=== PATIENT | male | born 1945 ===

== ENCOUNTER 2017-04-30 07:23 | Day surgery (SDC) | payer MEDICARE, MEDICAID ==
[2017-04-30 08:05] VITALS: BMI 23.3
[2017-04-30] MEDS ORDERED: Propofol 10 mg/ml Inj (20 ML) ONE (08:57)
[2017-04-30] MEDS ORDERED: Lidocaine Hydrochloride 5 ML INJ ONE (08:57)
--- NOTE | 2017-04-30 08:59 | CP.SDSHP ---
Same Day Surgery H & P - History Proposed Procedure: Colonoscopy Pre-Op Diagnosis: Personal history of colon polyps - Previous Medical/Surgical History Neuro: Other Comments: Parkinson's Disease Previous Surgical History: Hemorrhoidectomy - Allergies Allergies: Allergies No Known Allergies Allergy (Verified 04/30/17 08:05) - Current Medications Current Medications: See reconciliation sheet - Physical Exam General Appearance: WD WN male in NAD Vital Signs: Vital Signs 04/30/17 07:53 Temperature 98.1 F Pulse Rate 62 Respiratory 19 Rate Blood Pressure 122/90 O2 Sat by Pulse 98 Oximetry Mental Status: Alert & Oriented x3 Neuro: WNL Heart: WNL Lungs: WNL GI: WNL - {Optional Preform as Required} Abdomen: WNL - Impression Impression: Personal history of colon polyps Pt. Evaluated Today:Candidate for Anesthesia & Procedure: Yes - Date & Time Date: 04/30/17 Time: 08:59 Short Stay Discharge - Short Stay Discharge Admitting Diagnosis/Reason for Visit: PERSONAL HISTORY OF COLON POLYPS Disposition: HOME/ ROUTINE
[2017-04-30] MEDS ORDERED: ePHEDrine 50 mg/ml Inj ONE (09:00)
[2017-04-30] MEDS ORDERED: Phenylephrine 10 mg/ml Inj ONE (09:00)
[2017-04-30 10:06] VITALS: TEMP 97.7
[2017-04-30 11:15] VITALS: BP 130/68; PULSE 66; RESP 20; O2SAT 99
== END 2017-04-30 10:55 | disposition home or self-care (01) ==
LOC: C.ENDO 07:23
PROVIDERS: ATTEND Internal Medicine Gastroenterology
DX: Z12.11 Encounter for screening for malignant neoplasm of colon (principal); Z86.010 Personal history of colon polyps; K64.0 First degree hemorrhoids; G20 Parkinson's disease; K63.5 Polyp of colon
CPT/HCPCS: 45385; 88305; J2370; J2704; J7040